=== PATIENT | male | born 1970 | race Two or more races ===

== ENCOUNTER 2025-01-14 22:10 | Emergency (ER) | payer SELFPAY ==
[2025-01-14 22:15] VITALS: BP 127/85; PULSE 93; RESP 18; TEMP 36.9; O2SAT 96
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
[2025-01-14 23:36] LABS: Basophils # (Auto) 0.0 Thou/mm3 (0.0-0.2); Basophils % (Auto) 1 % (0-2.5); Eosinophils # (Auto) 0.1 Thou/mm3 (0.0-0.5); Eosinophils % (Auto) 2 % (0-10); Hematocrit 42.2 % (41.0-53.0); Hemoglobin 13.8 g/dL (13.5-16.0); Immature Granulocytes Auto 0.01 Thou/mm3 (0.00-0.00); Lymphocytes # (Auto) 1.4 Thou/mm3 (1.0-4.8); Lymphocytes % (Auto) 30 % (10-50); Mean Corpuscular HGB Conc 32.7 g/dl (31.0-37.0); Mean Corpuscular Hemoglobin 29.7 pg (25.0-35.0); Mean Corpuscular Volume 91 fL (80-100); Monocytes # (Auto) 0.4 Thou/mm3 (0.0-0.8); Monocytes % (Auto) 9 % (0-12); Neutrophils # (Auto) 2.6 Thou/mm3 (1.8-7.7); Neutrophils % (Auto) 58 % (37-80); Nucleated Red Blood Cell # 0.00 Thou/mm3 (0.00-0.00); Nucleated Red Blood Cell % 0 /100 WBC (0); Platelet Count 387 Thou/mm3 (140-440); RDW Standard Deviation 44.5 fL (35.1-43.9); Red Blood Count 4.65 Miln/mm3 (4.50-5.90); White Blood Count 4.5 Thou/mm3 (3.8-10.6)
[2025-01-14 23:51] LABS: Alanine Aminotransferase 31 U/L (10-49); Albumin, Serum 5.0 gm/dL (3.5-5.0); Albumin/Globulin Ratio 1.8 (1.2-2.2); Alcohol, Blood Medical < 3.0 mg/dL (0-10.0); Alkaline Phosphatase 80 U/L (46-116); Anion Gap 16 (7-16); Aspartate Amino Transferase 26 U/L (0-34); BUN/Creatinine Ratio 12 Ratio (12-20); Bilirubin,Total 0.4 mg/dL (0.3-1.2); Blood Urea Nitrogen 12 mg/dL (9-23); Calcium 10.1 mg/dL (8.3-10.6); Calcium (Corrected) 10.1 mg/dL (8.5-10.1); Carbon Dioxide 23.4 mMol/L (20.0-31.0); Chloride 104 mMol/L (98-107); Creatinine (Component) 1.0 mg/dL (0.6-1.3); Globulin 2.8 gm/dL (2.3-3.5); Glucose 99 mg/dL (74-106); Osmolality,Calculated 284 (275-295); Potassium 4.0 mMol/L (3.4-5.1); Sodium 143 mMol/L (136-145); Total Protein 7.8 gm/dL (5.7-8.2); eGFR > 60 See Note
[2025-01-15] MEDS: levETIRAcetam INJ 100 MG/ML VIAL 5ML 1000 MG IVP (00:28)
[2025-01-15 00:38] VITALS: BP 135/79; PULSE 65; RESP 16; TEMP 36.9; O2SAT 99
[2025-01-15 01:23] VITALS: PULSE 105
[2025-01-15 01:26] VITALS: BMI 20.9
[2025-01-15 02:27] VITALS: BP 131/76; PULSE 66; RESP 16; TEMP 37.1; O2SAT 98
== END 2025-01-15 02:29 | disposition home or self-care (01) ==
PROVIDERS: Emergency Provider Emergency Medicine; PCP Family Medicine
DX: G40.109 Localization-related (focal) (partial) symptomatic epilepsy and epileptic syndromes with simple partial seizures, not intractable, without status epilepticus (principal)
CPT/HCPCS: 36415; 80053; 80320; 85025; 99283; J1953; G0480

== ENCOUNTER 2025-03-06 18:13 | Emergency (ER) | payer SELFPAY ==
[2025-03-06 18:25] VITALS: BP 135/76; PULSE 94; RESP 18; TEMP 36.7; O2SAT 98
--- NOTE | 2025-03-06 18:30 | XR_ITS ---
Examination: CT brain head without contrast. 2-D sagittal coronal reconstructions Date and time of exam: March 06, 2025, 1926 hours INDICATIONS: Seizure today, patient fell with injury to the head, head pain COMPARISON: November 10, 2022 CTDI: vol (mGy): 50.4 DLP: (mGycm): 1055 Technique: Multiple CT axial sections of the brain have been obtained, 5 mm slice thickness. Contrast has not been administered. 2-D sagittal, coronal reconstructions have been obtained Low dose protocols were performed. One or more of the following dose reduction techniques were used; automated exposure control, adjustment of the mA and/or KV according to patient size, use of iterative reconstruction technique. Findings: No significant ventricular enlargement. Unchanged left frontal encephalomalacia Intra-axial or extra-axial hemorrhage density is not seen. No mass effect or midline shift Basal cisterns are not remarkable. Fourth ventricle is midline. Cranial vault intact. Impression: Negative for acute hemorrhage, mass effect or midline shift
--- NOTE | 2025-03-06 18:30 | XR_ITS ---
Examination: CT cervical spine without contrast 2-D sagittal reconstructions 2-D coronal reconstructions 3-D reconstructions. Exam date and time: March 06, 2025, 1925 hours INDICATIONS: Patient fell after seizure today, neck pain CTDI:vol (mGy) 13 DLP: (mGycm) 259 Technique: Multiple 2 mm axial sections of the cervical spine have been obtained. The coronal and sagittal reconstructions have been obtained. 3-D reconstructions have been obtained. Low dose protocols were performed. One or more of the following dose reduction techniques were used; automated exposure control, adjustment of the mA and/or KV according to patient size, use of iterative reconstruction technique. Findings: Axial sections demonstrate intact base of the skull. C1 exhibit satisfactory relationship to the odontoid. No acute cervical vertebral body fracture seen. Alignment posterior spinous processes satisfactory. Impression: No acute cervical fracture.
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
[2025-03-06 18:36] VITALS: PULSE 99; O2SAT 98; BMI 19.5
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
--- NOTE | 2025-03-06 18:45 | PC.NURSE ---
patient gcs 15 states he had a seizure around 1800 states he hasn't been able to get any of his keppra medication
[2025-03-06] MEDS: RINGERS LACTATED 1000 ML 1,000 ML 999 ML IV (18:52)
[2025-03-06] MEDS: levETIRAcetam INJ 100 MG/ML VIAL 5ML 1000 MG IVP (18:52)
[2025-03-06 19:08] LABS: Basophils # (Auto) 0.0 Thou/mm3 (0.0-0.2); Basophils % (Auto) 0 % (0-2.5); Eosinophils # (Auto) 0.1 Thou/mm3 (0.0-0.5); Eosinophils % (Auto) 1 % (0-10); Hematocrit 36.8 % (41.0-53.0); Hemoglobin 12.3 g/dL (13.5-16.0); Immature Granulocytes Auto 0.02 Thou/mm3 (0.00-0.00); Lymphocytes # (Auto) 0.8 Thou/mm3 (1.0-4.8); Lymphocytes % (Auto) 11 % (10-50); Mean Corpuscular HGB Conc 33.4 g/dl (31.0-37.0); Mean Corpuscular Hemoglobin 30.1 pg (25.0-35.0); Mean Corpuscular Volume 90 fL (80-100); Monocytes # (Auto) 0.3 Thou/mm3 (0.0-0.8); Monocytes % (Auto) 4 % (0-12); Neutrophils # (Auto) 5.6 Thou/mm3 (1.8-7.7); Neutrophils % (Auto) 83 % (37-80); Nucleated Red Blood Cell # 0.00 Thou/mm3 (0.00-0.00); Nucleated Red Blood Cell % 0 /100 WBC (0); Platelet Count 383 Thou/mm3 (140-440); RDW Standard Deviation 44.4 fL (35.1-43.9); Red Blood Count 4.08 Miln/mm3 (4.50-5.90); White Blood Count 6.8 Thou/mm3 (3.8-10.6)
[2025-03-06 19:27] LABS: Alanine Aminotransferase 18 U/L (10-49); Albumin, Serum 4.3 gm/dL (3.5-5.0); Albumin/Globulin Ratio 1.9 (1.2-2.2); Alcohol, Blood Medical < 3.0 mg/dL (0-10.0); Alkaline Phosphatase 78 U/L (46-116); Anion Gap 8 (7-16); Aspartate Amino Transferase 16 U/L (0-34); BUN/Creatinine Ratio 18 Ratio (12-20); Bilirubin,Total 0.3 mg/dL (0.3-1.2); Blood Urea Nitrogen 14 mg/dL (9-23); Calcium 8.9 mg/dL (8.3-10.6); Calcium (Corrected) 8.9 mg/dL (8.5-10.1); Carbon Dioxide 26.0 mMol/L (20.0-31.0); Chloride 107 mMol/L (98-107); Creatinine (Component) 0.8 mg/dL (0.6-1.3); Estimated Creatinine Clearance 92.1 mL/min (>60); Globulin 2.3 gm/dL (2.3-3.5); Glucose 116 mg/dL (74-106); Osmolality,Calculated 282 (275-295); Potassium 4.0 mMol/L (3.4-5.1); Sodium 141 mMol/L (136-145); Total Protein 6.6 gm/dL (5.7-8.2); eGFR > 60 See Note
[2025-03-06 19:56] VITALS: BP 115/71; PULSE 78; RESP 17; O2SAT 97
[2025-03-06 20:20] LABS: Collection Type, Urine Clean Catch
[2025-03-06 20:26] LABS: Bilirubin,Urine Negative (Negative); Blood,Urine 3+ (Negative); Clarity,Urine Clear (Clear/Hazy); Color,Urine Lt-Yellow (Lt Yel-Yel); Glucose, Urine Negative (Negative); Ketones,Urine Negative (Negative); Leukocyte Esterase,Urine Positive (Negative); Nitrite,Urine Negative (Negative); PH,Urine 6.5 (5.0-7.0); Protein,Urine Trace (Neg - Trace); RBC,Urine 307 /hpf (0-3); Specific Gravity,Urine 1.026 (1.001-1.035); Squamous Epithelial Cell,Urine 1 /hpf (0-5); Urobilinogen,Urine Negative mg/dL (0.0-1.0); WBC,Urine 29 /hpf (0-5)
[2025-03-06 20:37] LABS: Amphetamine/Methamp Scrn,U Positive (Negative); Barbiturate Screen,Urine Negative (Negative); Benzodiazepines Screen,Urine Negative (Negative); Benzoylecgonine Screen, Ur Negative (Negative); Fentanyl Screen,Urine Negative (Negative); Opiate Screen,Urine Negative (Negative); THC Screen,Urine Negative (Negative)
[2025-03-06 21:00] VITALS: PULSE 81; RESP 17; TEMP 37.1; O2SAT 96
== END 2025-03-06 21:05 | disposition home or self-care (01) ==
LOC: SERX 21:16
PROVIDERS: Registered Nurse General Practice; Emergency Provider Emergency Medicine; PCP Physician Assistant Medical
DX: G40.909 Epilepsy, unspecified, not intractable, without status epilepticus (principal); F15.10 Other stimulant abuse, uncomplicated
CPT/HCPCS: 36415; 70450; 72125; 80053; 80307; 80320; 81001; 85025; 96361; 96374; 99284; J1953; J7120; G0480

== ENCOUNTER 2025-04-04 22:35 | Emergency (ER) | payer SELFPAY ==
[2025-04-04 22:36] VITALS: PULSE 112; RESP 16; O2SAT 98; BMI 23.3
[2025-04-04 22:43] VITALS: BP 128/69; PULSE 99; RESP 20; TEMP 36.9; O2SAT 96
--- NOTE | 2025-04-04 22:46 | XR_ITS ---
Examination: CT brain head without contrast. 2-D sagittal coronal reconstructions Date and time of exam: April 04, 2025, 11:19 p.m., comparison March 06, 2025 INDICATIONS: Seizure today with loss of consciousness CTDI: vol (mGy): 51.7 DLP: (mGycm): 956 Technique: Multiple CT axial sections of the brain have been obtained, 5 mm slice thickness. Contrast has not been administered. 2-D sagittal, coronal reconstructions have been obtained Low dose protocols were performed. One or more of the following dose reduction techniques were used; automated exposure control, adjustment of the mA and/or KV according to patient size, use of iterative reconstruction technique. Findings: No significant ventricular enlargement. Again noted is encephalomalacia in the left frontal lobe Intra-axial or extra-axial hemorrhage density is not seen. No mass effect or midline shift Basal cisterns are not remarkable. Fourth ventricle is midline. Cranial vault intact. Impression: Negative for acute hemorrhage, mass effect or midline shift
--- NOTE | 2025-04-04 22:53 | PD.EDSEIZ ---
ED Seizures RME/HPI General Chief Complaint: Seizure Stated Complaint: SEIZURE Time Seen by Provider: 04/04/25 22:44 Arrival date/time: 04/04/25 22:35 RME / HPI Onset (ago): unknown Description of Episode: loss of consciousness Witnessed: no Trauma: No Seizure History: known seizure disorder Place: street/outdoors Possible Precipitating Event: drug use (History of drug use with U tox in the past being present for amphetamine) and medication (Medication noncompliance) Associated symptoms: confusion Treatments prior to arrival: none Related Data Previous Rx's ?Medication ?Instructions ?Recorded clindamycin HCl 300 mg capsule 300 mg PO QID #40 caps 01/04/22 levetiracetam 500 mg tablet 500 mg PO BID #60 tabs 11/10/22 (Keppra) levetiracetam 500 mg tablet 500 mg PO BID #60 tabs 01/15/25 (Keppra) levetiracetam 500 mg tablet 500 mg PO BID #30 tabs 03/06/25 (Keppra) levetiracetam 500 mg tablet 500 mg PO BID 1 month #60 tabs 04/04/25 (Keppra) Allergies Allergy/AdvReac Type Severity Reaction Status Date / Time No Known Allergies Allergy Verified 04/04/25 22:36 ED Exam Narrative Physical exam: Physical Exam: GENERAL: Awake, answering questions appropriately Turkmen, appears disheveled, poor hygiene HEENT: NC/AT. Moist mucosa. PERRLA/EOMI. Poor dentition, with missing teeth. No tongue lacerations noted CARDIO: Heart RRR, no obvious murmurs, no JVD. PULM: No coughing or visible SOB. Lungs CTA B/L. GI: Abdomen soft, NT/ND, +BS. SKIN/MSK/EXT: Generalized discoloration noted, poor hygiene extremities with scarring. No wounds/edema/amputations noted. +Pedal pulses present B/L. NEURO: Oriented x3, Moves extremities x4, no focal neurologic deficits noted Course Quality Measures none (Patient ambulating without any concerns) Orders Category Date Time Status Bedside Blood Glucose NOW Care 04/04/25 22:[address] Screening NOW Care 04/04/25 23:31 Active IV [Insert IV] NOW Care 04/04/25 22:44 Active Seizure precautions NOW Care 04/04/25 22:[address] cervical spine wo con Stat Exams 04/04/25 23:[address] head/brain wo con Stat Exams 04/04/25 22:46 Completed Alcohol, Urine Stat Lab 04/04/25 22:54 Completed CBC Stat Lab 04/04/25 22:55 Completed CMP [Comprehensive Metabolic Panel] Stat Lab 04/04/25 22:55 Completed Drug Screen,Urine Stat Lab 04/04/25 22:54 Completed Lactate (Lactic Acid) Stat Lab 04/05/25 00:23 Completed Lactic Acid [Lactate (Lactic Acid)] Stat Lab 04/04/25 22:55 Results Mag [Magnesium] Stat Lab 04/04/25 22:55 Completed Urinalysis, C/S if Indicated Stat Lab 04/04/25 22:54 Completed Diazepam Inj [Valium Inj] Med 04/04/25 22:52 Discontinued 15 mg IVP Q30M PRN Ringers Lactated 1000 ml [Lactated Ringers] 1,000 ml Med 04/04/25 23:16 Discontinued IV 999 mls/hr levETIRAcetam [Keppra] Med 04/04/25 23:01 Discontinued 1,000 mg PO X1 ONE Vital Signs Vital signs: Vital Signs Temperature 98.5 F 04/04/25 22:43 Pulse Rate 99 04/04/25 22:43 Respiratory Rate 20 04/04/25 22:43 Blood Pressure 128/69 04/04/25 22:43 Pulse Oximetry (%) 96 04/04/25 22:43 Oxygen Delivery Method Room Air 04/04/25 22:43 Seizure MDM Narrative MDM Narrative:: HPI: 54-year-old male with past medical history of polysubstance use disorder including methamphetamine use disorder, history of seizures on Keppra although patient is medically noncompliant, houseless presenting to the ED with an unwitnessed seizure. Patient was found by EMS provider who stated that patient was unconscious for about 10 seconds or so. Patient said he does not remember exactly when he had the seizure or how long it lasted; however, he does remember having a fall and believes it secondary to his seizure. He is currently houseless and apparently lives in a assisted in town; moreover, has multiple ED visits in the past several months and apparently does not take prescribed medications. He currently states that he feels well and denies having concerning symptoms such as chest pain, dizziness, shortness of breath, diaphoresis, nausea/vomiting/diarrhea, bleeding including hematemesis or hematochezia. On examination, patient appears disheveled but is awake and answering questions appropriately in Turkmen. Heart and lung examination is largely unremarkable, abdominal exam negative for any tenderness on palpation, lower extremities fluting upper extremities are uncapped with some discoloration and scarring but no edema, cyanosis or clubbing noted. Differentials at this time includes breakthrough seizures secondary to poor medication compliance, acute intoxication secondary to polysubstance use disorder, syncope Imaging is pending including CT head and CT of the cervical spine. Lactic acid is elevated likely secondary to recent seizure activity; moreover, low clinical suspicion for infectious/septic process ongoing. Patient is afebrile, there is no white count, no source of infection. Patient is mildly tachycardic but otherwise denies having concerning symptoms at this time as noted above in ROS. CBC is unremarkable with no white count, CMP is also unremarkable with no electrolyte abnormalities noted, urinalysis ordered and will reflex to culture if there is any concerning findings. U tox including drug alcohol screen ordered shows patient is actively using methamphetamine. #Breakthrough seizure #History of seizure disorder #Polysubstance use disorder #Houseless As stated above Gave patient 1 g loading dose of Keppra UTOX positive for amphetamine CT of the head and cervical spine CT is negative for any acute findings Urinalysis negative for any signs of infection Lactic acid elevated due to seizure activity is now back to normal levels with 1L IVF resuscitation Plan: Seizure precautions set Will discharge patient on Keppra 500 mg p.o. twice daily and counseled on medication compliance with close follow-up Patient seen and assessed with attending Dr. Hayden Cardoza, PGY-2 Internal Medicine - [facility] Patient data External records reviewed:: Other (specify) (See above) Clinical information provided by:: patient and EMS Social determinants that could affect healthcare access:: substance use Patient has the following chronic illnesses:: History of seizure disorder on antiepileptic medication How is presenting disease/condition affected by chronic disease/condition?: caused by Evaluation data The following diagnostics were reviewed and interpreted by me:: lab results and radiology exam(s) Lab and/or radiology exams considered but not ordered:: CT head without contrast including CT cervical spine ordered secondary to patient having seizure and having a fall. Lactic acid elevated secondary to seizure episode, patient is outside postictal state, unsure exactly how long seizure lasted. Interpretation Summary: Lactic acid likely from seizure activity with sharp decline with intiation of 1L IVF bolus. Medications / Prescriptions Medications or Prescriptions considered but not ordered:: As above Medication administrations:: Medication Administration History Discontinued Medications Diazepam (Diazepam Inj 5 Mg/Ml Vial 2 Ml) 15 mg IVP Q30M PRN PRN Reason: SEIZURES Stop: 04/09/25 22:51 Lactated Ringer's (Lactated Ringers) 1,000 mls @ 999 mls/hr IV .Q1H1M ONE Stop: 04/05/25 00:16 Last Admin: 04/04/25 23:34 Dose: 999 mls/hr Documented By: CAMRON Levetiracetam (Levetiracetam 250 Mg Tablet) 1,000 mg PO X1 ONE Stop: 04/04/25 23:02 Last Admin: 04/04/25 23:33 Dose: 1,000 mg Documented By: CAMRON Evening dose of Keppra, 1 g p.o. Consultations Consultation(s) initiated? (list below): No Diagnosis Seizure Differential Diagnosis: generalized seizure Most likely diagnosis given after review of the tests above:: Breakthrough seizure secondary to medication noncompliance Admission Indicated Admission indicated?: not indicated Admission Request Was there a request for admission?: No Disposition Plan Disposition Plan: Discharge Discharge Attestation Discharge Attestation: The patient and all family members were given an opportunity to ask questions and understood the discharge instructions. Discharge instructions specifically effects, indications for sooner follow up or return to the emergency department, and the expected course of current diagnosis. Patient condition: Stable Discharge Plan Plan Patient Disposition: HOME (Self Care) Prescriptions/Referrals Prescriptions/Med Rec: New levetiracetam [Keppra] 500 mg tablet 500 mg PO BID 30 Days Qty: 60 0RF No Action clindamycin HCl 300 mg capsule 300 mg PO QID Qty: 40 0RF levetiracetam [Keppra] 500 mg tablet 500 mg PO BID Qty: 60 0RF levetiracetam [Keppra] 500 mg tablet 500 mg PO BID Qty: 60 2RF levetiracetam [Keppra] 500 mg tablet 500 mg PO BID Qty: 30 1RF Problem List Clinical Impression: Generalized seizure Patient/Caregiver Discharge Instructions Education Materials: ED Seizure, Recurrent (Adult) Additional Instructions: Please fill prescription for levetiracetam 500 mg p.o. twice daily and follow-up with your primary care physician and neurologist within the next week. If your symptoms worsen or if you develop new seizures, please come back to the emergency room immediately. Print Language: Turkmen Stand Alone Forms: Rosa Elena Award Info., Patient Portal Info Letter MD Attestation MD Attestation I, Dr. Garcia, have reviewed the history, exam, and assessment of the patient. I have evaluated the patient independently and agree with the plan of care documented by the resident Dr. Cardoza. All diagnostic studies were reviewed and discussed. I confirm the diagnosis as documented by the resident. I was present during the Medical Decision Making for this patient. The patient?s plan of care was created between myself and the resident and consistent with our discussion of the patient?s case.
--- NOTE | 2025-04-04 23:01 | XR_ITS ---
Examination: CT cervical spine without contrast 2-D sagittal reconstructions 2-D coronal reconstructions 3-D reconstructions. Exam date and time: April 04, 2025, 11:19 p.m., comparison March 06, 2025 INDICATIONS: Seizure today with injury to the neck, neck pain CTDI:vol (mGy) 14.6 DLP: (mGycm) 282 Technique: Multiple 2 mm axial sections of the cervical spine have been obtained. The coronal and sagittal reconstructions have been obtained. 3-D reconstructions have been obtained. Low dose protocols were performed. One or more of the following dose reduction techniques were used; automated exposure control, adjustment of the mA and/or KV according to patient size, use of iterative reconstruction technique. Findings: Axial sections demonstrate intact base of the skull. C1 exhibit satisfactory relationship to the odontoid. No acute cervical vertebral body fracture seen. Alignment posterior spinous processes satisfactory. Impression: No acute cervical fracture.
[2025-04-04 23:09] LABS: Collection Type, Urine Clean Catch
[2025-04-04 23:09] LABS: Lactate (Lactic Acid) 6.2 mMol/L (0.4-2.0)
[2025-04-04 23:12] LABS: Basophils # (Auto) 0.1 Thou/mm3 (0.0-0.2); Basophils % (Auto) 1 % (0-2.5); Eosinophils # (Auto) 0.1 Thou/mm3 (0.0-0.5); Eosinophils % (Auto) 1 % (0-10); Hematocrit 41.3 % (41.0-53.0); Hemoglobin 13.7 g/dL (13.5-16.0); Immature Granulocytes Auto 0.02 Thou/mm3 (0.00-0.00); Lymphocytes # (Auto) 1.9 Thou/mm3 (1.0-4.8); Lymphocytes % (Auto) 33 % (10-50); Mean Corpuscular HGB Conc 33.2 g/dl (31.0-37.0); Mean Corpuscular Hemoglobin 30.2 pg (25.0-35.0); Mean Corpuscular Volume 91 fL (80-100); Monocytes # (Auto) 0.6 Thou/mm3 (0.0-0.8); Monocytes % (Auto) 10 % (0-12); Neutrophils # (Auto) 3.2 Thou/mm3 (1.8-7.7); Neutrophils % (Auto) 54 % (37-80); Nucleated Red Blood Cell # 0.00 Thou/mm3 (0.00-0.00); Nucleated Red Blood Cell % 0 /100 WBC (0); Platelet Count 425 Thou/mm3 (140-440); RDW Standard Deviation 43.0 fL (35.1-43.9); Red Blood Count 4.53 Miln/mm3 (4.50-5.90); White Blood Count 5.8 Thou/mm3 (3.8-10.6)
[2025-04-04 23:26] LABS: Alanine Aminotransferase 26 U/L (10-49); Albumin, Serum 4.9 gm/dL (3.5-5.0); Albumin/Globulin Ratio 1.6 (1.2-2.2); Alkaline Phosphatase 106 U/L (46-116); Anion Gap 13 (7-16); Aspartate Amino Transferase 20 U/L (0-34); BUN/Creatinine Ratio 23 Ratio (12-20); Bilirubin,Total 0.3 mg/dL (0.3-1.2); Blood Urea Nitrogen 18 mg/dL (9-23); Calcium 9.2 mg/dL (8.3-10.6); Calcium (Corrected) 9.2 mg/dL (8.5-10.1); Carbon Dioxide 23.5 mMol/L (20.0-31.0); Chloride 102 mMol/L (98-107); Creatinine (Component) 0.8 mg/dL (0.6-1.3); Estimated Creatinine Clearance 93.0 mL/min (>60); Globulin 3.1 gm/dL (2.3-3.5); Glucose 98 mg/dL (74-106); Magnesium 2.4 mg/dL (1.6-2.6); Osmolality,Calculated 277 (275-295); Potassium 4.5 mMol/L (3.4-5.1); Sodium 138 mMol/L (136-145); Total Protein 8.0 gm/dL (5.7-8.2); eGFR > 60 See Note
[2025-04-04 23:31] LABS: Bilirubin,Urine Negative (Negative); Blood,Urine Negative (Negative); Clarity,Urine Clear (Clear/Hazy); Color,Urine Lt-Yellow (Lt Yel-Yel); Culture Indicated,Urine Not Indicated; Glucose, Urine Negative (Negative); Ketones,Urine Trace (Negative); Leukocyte Esterase,Urine Negative (Negative); Nitrite,Urine Negative (Negative); PH,Urine 6.0 (5.0-7.0); Protein,Urine Negative (Neg - Trace); RBC,Urine 2 /hpf (0-3); Specific Gravity,Urine 1.022 (1.001-1.035); Squamous Epithelial Cell,Urine < 1 /hpf (0-5); Urobilinogen,Urine Negative mg/dL (0.0-1.0); WBC,Urine 3 /hpf (0-5)
[2025-04-04] MEDS: RINGERS LACTATED 1000 ML 1,000 ML 999 ML IV (23:34)
[2025-04-04 23:58] LABS: Alcohol, Urine Negative (Negative); Amphetamine/Methamp Scrn,U Positive (Negative); Barbiturate Screen,Urine Negative (Negative); Benzodiazepines Screen,Urine Negative (Negative); Benzoylecgonine Screen, Ur Negative (Negative); Fentanyl Screen,Urine Negative (Negative); Opiate Screen,Urine Negative (Negative); THC Screen,Urine Negative (Negative)
[2025-04-05 00:43] LABS: Lactate (Lactic Acid) 2.0 mMol/L (0.4-2.0)
[2025-04-05 01:02] VITALS: BP 136/72; PULSE 82; RESP 16; TEMP 36.8; O2SAT 98
[2025-04-05 02:04] LABS: Reflex Lactate? Y
== END 2025-04-05 01:03 | disposition home or self-care (01) ==
LOC: SERX 23:18
PROVIDERS: Emergency Provider Emergency Medicine
DX: R56.9 Unspecified convulsions (principal); T42.6X6A Underdosing of other antiepileptic and sedative-hypnotic drugs, initial encounter; S19.9XXA Unspecified injury of neck, initial encounter; F15.10 Other stimulant abuse, uncomplicated; W19.XXXA Unspecified fall, initial encounter; Z91.148 Patient's other noncompliance with medication regimen for other reason; Z59.01 Sheltered homelessness
CPT/HCPCS: 36415; 70450; 72125; 80053; 80307; 80320; 81001; 83605; 83735; 85025; 96360; 99283; J7120; A9270; G0480